=== PATIENT | female | born 1955 | race Caucasian/White ===

== ENCOUNTER 2021-06-14 16:35 | Emergency (ER) | payer OTHER ==
[~2021-06-14 16:35] MED LIST: MEDROL 4MG DOSEP4 MG PO; NEURONTIN300 MG PO; NORCO 5-325 TA1 EACH PO; TRAMADOL HCL50 MG PO; ZPAK PO
[2021-06-14 17:36] LABS: BILIRUBIN NEGATIVE (NEGATIVE); BLOOD NEGATIVE Ery/uL (NEGATIVE); CLARITY CLEAR (CLEAR); COLOR YELLOW (YELLOW); GLUCOSE (U) NORMAL (NORMAL); LEUKOCYTES NEGATIVE Leu/uL (NEGATIVE); NITRITE NEGATIVE (NEGATIVE); PROTEIN NEGATIVE (NEGATIVE); SPECIFIC GRAVITY >=1.030 (1.001-1.030); UROBILINOGEN 0.2 mg/dL (0.2-1.0); pH 5.5 (5.0-9.0)
[2021-06-14 18:37] LABS: BASOPHIL 0.3 % (0-2); EOSINOPHIL 0.6 % (0-7); HGB 12.9 g/dl (12.5-16.0); LYMPHOCYTE 8.9 % (15-48); MCH 28.9 pg (25.0-31.0); MCHC 32.3 g/dL (32.0-36.0); MCV 89.5 fL (78.0-100.0); MONOCYTE 6.1 % (0-12); MPV 9.3 fL (6.0-9.5); NEUTROPHIL 83.8 % (41-80); NRBC 0; PLT 243 K/uL (150-400); RBC 4.47 M/uL (4.20-5.40); RDW 12.7 % (11.5-14.0); WBC 10.1 K/uL (4.0-10.5)
[2021-06-14 19:06] LABS: LACTIC ACID 0.8 mmol/L (0.4-1.9)
[2021-06-14 19:07] LABS: ALBUMIN 3.5 g/dL (3.4-5.0); BILIRUBIN - TOTAL 0.7 mg/dL (0.2-1.0); BUN/CREAT RATIO (CALC) 12.6 RATIO; CREATININE 1.11 mg/dL (0.51-0.95); POTASSIUM 4.3 mmol/L (3.5-5.1); TOTAL PROTEIN 7.5 g/dL (6.4-8.2)
[2021-06-14 19:34] LABS: CORONAVIRUS 2019 SARS-COV-2 NEGATIVE (NEGATIVE); INFLUENZA A NAA NEGATIVE (NEGATIVE)
[2021-06-14 23:27] LABS: INR 1.13 (0.9-1.2); PROTHROMBIN TIME 13.9 SECONDS (11.8-13.4)
== END 2021-06-15 07:50 | disposition other institution (70) ==
LOC: FER 16:35
PROVIDERS: Emergency Medicine; Emergency Medicine Emergency Medical Services
DX: I26.99 Other pulmonary embolism without acute cor pulmonale (principal); I51.9 Heart disease, unspecified; I10 Essential (primary) hypertension; Z20.822 Contact with and (suspected) exposure to COVID-19
CPT/HCPCS: 36415; 71275; 80053; 81003; 83605; 83690; 83880; 84484; 85025; 85379; 85610; 85730; 87040; J0696; J1170; J1644; J1885; J2270; J2405; J2550; J2800; J2930; J7030; J7050; Q9967; U0002